=== PATIENT | female | born 1990 | race Two or more races ===

== ENCOUNTER 2017-04-01 13:14 | Emergency (ER) | payer SELFPAY ==
[~2017-04-01] VITALS: Ht 162.6 cm; Wt 72.5 kg
[2017-04-01 13:15] VITALS: BP 125/77; PULSE 93; RESP 18; TEMP 98.7; O2SAT 98
--- NOTE | 2017-04-01 13:31 | PD ---
HPI . right eye lid swelling since Thursday Chief Complaint: Eye Problems/Injury Time Seen by Provider: 13:31 Travel History International Travel<30 days: No Contact w/Intl Traveler<30days: No Traveled to known affect area: No History of Present Illness HPI 26-year-old female with no past medical history here with complaints of right eyelid swelling since Thursday. Patient says that out the blue her right upper eye lid started swelling. She's been trying to use compresses on it and is not improving. She denies any foreign body sensation, redness of the eye or tearing. She denies any photophobia or pain. She tells me that the eyelid is very sensitive to touch. She denies any fever or chills. She has no other complaints. She does have a small baby, but is not breast-feeding. [facility] Past Medical History Medical History: Denies Significant Hx ?: Not LMP: 02/26/17 Social History Alcohol Use: No Tobacco Use: No Substance Use: No Allergies-Medications Reported Meds & Prescriptions Reported Meds & Active Scripts Active Ibuprofen 800 Mg Tab 800 Mg PO TID Bactrim DS (Sulfamethoxazole-Trimethoprim) 800-160 Mg Tab 1 Tab PO BID Erythromycin Opth Oint 5 Mg/Gm Oint 1 Applic RIGHT EYE BID 5 Days Review of Systems General / Constitutional: No: Fever Eyes: Positive: Other (right eye lid swelling/pain), No: Visual changes HENT: No: Headaches Cardiovascular: No: Chest Pain or Discomfort Respiratory: No: Shortness of Breath Gastrointestinal: No: Abdominal Pain Genitourinary: No: Dysuria Musculoskeletal: No: Pain Skin: No Rash Neurologic: No: Weakness Psychiatric: No: Depression Endocrine: No: Polydipsia Hematologic/Lymphatic: No: Easy Bruising Physical Exam Narrative GENERAL: AAO x 3, no acute distress, Well-nourished, well-developed patient. SKIN: Warm and dry. No visible rashes or bruising. Right upper eyelid erythematous and edematous. no drainage. no other involvement HEAD: Normocephalic and atraumatic. EYES: No scleral icterus. No injection or drainage. EOM intact, PERRLA, no tearing. ENT: No nasal drainage noted. Mucous membranes pink. Airway patent. NECK: Supple, trachea midline. No JVD. CARDIOVASCULAR: Regular rate and rhythm without murmurs, gallops, or rubs. RESPIRATORY: Breath sounds equal bilaterally. No accessory muscle use. No rhonchi or rales. GASTROINTESTINAL: Visual inspection normal EXTREMITIES: No cyanosis or edema. BACK: Nontender without obvious deformity. No CVA tenderness. PSYCH: AAO x 3, normal affect. Data Data Last Documented VS Vital Signs Date Time Temp Pulse Resp B/P Pulse Ox O2 Delivery O2 Flow Rate FiO2 04/01/17 13:15 98.7 93 18 125/77 98 Room Air MDM Medical Decision Making Medical Screen Exam Complete: Yes Emergency Medical Condition: Yes Medical Record Reviewed: Yes Differential Diagnosis Blepharitis, preseptal cellulitic, less likely foreign body, less likely conjunctivitis Narrative Course 26-year-old female here with what appears to be blepharitis and possible preseptal cellulitis. I will go ahead and treat her with antibiotic ointment and oral antibiotics to cover MRSA. I advised her to follow-up with mechanical equipment sales engineer if her symptoms do not improve within the next 2-3 days. Patient verbalized understanding of instructions, questions were answered, and thanked me for their care. I advised them if their condition worsens, please return to the nearest emergency room for further care. Diagnosis Primary Impression: Blepharitis of right eyelid Qualified Code: H01.001 - Blepharitis of right upper eyelid, unspecified type Additional Impression: Preseptal cellulitis of right upper eyelid Referrals: [employer] Director Patient Instructions: General Instructions Additional Instructions: See an mechanical equipment sales engineer in the next 2-3 days. [place] for worsening signs of infection which include fever, increased redness , increased warmth, purulent drainage, increased swelling or streaking. If any of these develop, please go to the nearest emergency room. Please return to emergency department if your symptoms return or worsen. Follow up with your primary care provider. Take medications as prescribed. Scripts Ibuprofen 800 Mg Sxd268 Mg PO TID #21 TAB Prov:Lee Whitaker MD 04/01/17 Sulfamethoxazole-Trimethoprim (Bactrim DS)800-160 Mg Tab1 Tab PO BID #20 TAB Prov:Lee Whitaker MD 04/01/17 Erythromycin Opth Oint 5 Mg/Gm Oint1 Applic RIGHT EYE BID 5 Days Ref 0 Prov:Lee Whitaker MD 04/01/17 Disposition: 01 DISCHARGE HOME Condition: Stable Mangali,Clara PA April 01, 2017 13:31
[2017-04-01] MEDS ORDERED: IBUP800T23 PO (13:33)
[2017-04-01] MEDS ORDERED: BACT800T5 PO (13:33)
[2017-04-01] MEDS ORDERED: ERYTOIN10 RIGHT EYE (13:33)
== END 2017-04-01 14:07 | disposition home or self-care (01) ==
LOC: NEPK 13:14
DX: H01.001 Unspecified blepharitis right upper eyelid (principal); H00.031 Abscess of right upper eyelid
CPT/HCPCS: 99284